=== PATIENT | female | born 1985 | race Hispanic/Latino ===

== ENCOUNTER 2018-12-01 17:07 | Emergency (ER) | payer BC, MEDICAID ==
--- NOTE | 2018-12-01 17:22 | Emergency Department Report ---
Blank Doc - Documentation Documentation: 33 y/o female sent from [facility] for etopic .
[2018-12-01 18:34] LABS: Basophils # (Auto) 0.1 K/mm3 (0.0-0.1); Basophils % (Auto) 1.3 % (0.0-1.8); Eosinophils # (Auto) 0.3 K/mm3 (0.0-0.4); Eosinophils % (Auto) 4.1 % (0.0-4.3); Hematocrit 33.6 % (30.3-42.9); Hemoglobin 10.9 gm/dl (10.1-14.3); Lymphocytes # (Auto) 2.2 K/mm3 (1.2-5.4); Lymphocytes % (Auto) 27.6 % (13.4-35.0); Mean Corpuscular HGB Conc 33 % (30-34); Mean Corpuscular Volume 78 fl (79-97); Monocytes # (Auto) 0.6 K/mm3 (0.0-0.8); Platelet Count 344 K/mm3 (140-440); Red Blood Count 4.31 M/mm3 (3.65-5.03); Red Cell Distribution Width 19.9 % (13.2-15.2)
[2018-12-01 18:39] LABS: INR 0.9 (0.87-1.13)
[2018-12-01 18:53] LABS: Alanine Aminotransferase 20 units/L (7-56); Albumin 4.1 g/dL (3.9-5); BUN/Creatinine Ratio 15; Blood Urea Nitrogen 9 mg/dL (7-17); Calcium 8.9 mg/dL (8.4-10.2); Hemolysis Index 0
[2018-12-01] MEDS ORDERED: TYLENOL PO ONE (19:42)
[2018-12-01 19:51] VITALS: BP 113/73
[2018-12-01] MEDS ORDERED: K-DUR PO ONE (20:01)
--- NOTE | 2018-12-01 20:04 | Emergency Department Report ---
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 Patient states that she went to her MAIL PROCESSING CLERK's office area today and various tests were performed and the ultrasound showed that she may be having an ectopic in the right fallopian tube. Patient states that she was then advised to come to the ED for a Rhogam injection. Patient states that the pain is intermittent and when it is worse she gets nausea and vomiting. Patient however denies fever, chills, diarrhea, vaginal bleeding, low back pain, dizziness, headache or shortness of breath and chest pain. Patient states that this is second ectopic , stating that the last ectopic affected left fallopian Q which had to be removed. MD Complaint: pelvic pain, other (, suspected ectopic ) -: Sudden, days(s) (2) Location: suprapubic, RLQ Radiation: non-radiating Severity: severe Severity scale (0 -10): 7 Quality: cramping, sharp Consistency: intermittent Improves with: none Worsens with: none Are you Now?: Yes (Approximately 5 weeks gestation) Associated Symptoms: denies other symptoms, vaginal discharge, vaginal bleeding, fever/chills, headaches, shortness of breath, syncope - Related Data Sexually active: Yes : 4 Para: 1 A: 2 Previous Rx's Medication Instructions Recorded Last Taken Type Glycerin/Propylene Glycol 30 ml OP Q4H #1 each 07/21/18 Unknown Rx [Artificial Tears Drops] Valacyclovir HCl [Valtrex] 500 mg PO DAILY #10 tablet 07/21/18 Unknown Rx predniSONE [Deltasone] 20 mg PO QDAY #9 tab 07/21/18 Unknown Rx Allergies Allergy/AdvReac Type Severity Reaction Status Date / Time No Known Allergies Allergy Verified 12/01/18 17:09 ED Review of Systems ROS: Stated complaint: EPTOPIC Other details as noted in HPI Comment: All other systems reviewed and negative Constitutional: no symptoms reported, see HPI. denies: chills, fever Eyes: as per HPI. denies: eye pain, eye discharge ENT: as per HPI. denies: ear pain, throat pain, hearing loss Respiratory: no symptoms reported, see HPI. denies: cough, shortness of breath, SOB with exertion Cardiovascular: as per HPI. denies: chest pain, palpitations, dyspnea on exertion, syncope Endocrine: no symptoms reported, see HPI Gastrointestinal: as per HPI, abdominal pain, nausea, vomiting. denies: diarrhea, hematemesis, hematochezia Genitourinary: as per HPI, other (pelvic pain.). denies: urgency, dysuria, frequency, hematuria, abnormal menses, dyspareunia Musculoskeletal: as per HPI. denies: back pain Skin: as per HPI Neurological: as per HPI. denies: headache, weakness, numbness, confusion Psychiatric: as per HPI Hematological/Lymphatic: as per HPI ED Past Medical Hx - Past Medical History Hx Hypertension: No Hx Congestive Heart Failure: No Hx Diabetes: No Hx Deep Vein Thrombosis: No Hx Liver Disease: No Hx Renal Disease: No Hx Sickle Cell Disease: No Hx Seizures: No Hx Asthma: No Hx COPD: No - Surgical History Additional Surgical History: ECTOPIC --Left Fallopian tube s/p resection - Social History Smoking Status: Current Every Day Smoker Substance Use Type: Marijuana - Medications Home Medications: Home Medications Medication Instructions Recorded Confirmed Last Taken Type Glycerin/Propylene Glycol 30 ml OP Q4H #1 each 07/21/18 Unknown Rx [Artificial Tears Drops] Valacyclovir HCl [Valtrex] 500 mg PO DAILY #10 tablet 07/21/18 Unknown Rx predniSONE [Deltasone] 20 mg PO QDAY #9 tab 07/21/18 Unknown Rx ED Physical Exam - General Limitations: No Limitations General appearance: alert, in no apparent distress - Head Head exam: Present: normocephalic, normal inspection - Eye Eye exam: Present: normal appearance, PERRL, EOMI Pupils: Present: normal accommodation - ENT ENT exam: Present: normal exam, normal orophraynx, mucous membranes moist, TM's normal bilaterally, normal external ear exam - Neck Neck exam: Present: normal inspection, full ROM. Absent: tenderness, lymphadenopathy - Respiratory Respiratory exam: Present: normal lung sounds bilaterally. Absent: respiratory distress, wheezes, chest wall tenderness - Cardiovascular Cardiovascular Exam: Present: normal rhythm, tachycardia, normal heart sounds - GI/Abdominal GI/Abdominal exam: Present: soft, tenderness (moderate right lower quadrant and suprapubic tenderness), normal bowel sounds. Absent: guarding, rebound, hyperactive bowel sounds - Rectal Rectal exam: Present: deferred - Extremities Exam Extremities exam: Present: normal inspection, normal capillary refill - Back Exam Back exam: Present: normal inspection, full ROM. Absent: tenderness, CVA tenderness (R), CVA tenderness (L) - Neurological Exam Neurological exam: Present: alert, oriented X3, CN II-XII intact, normal gait, reflexes normal - Psychiatric Psychiatric exam: Present: normal affect - Skin Skin exam: Present: warm, dry, intact ED Course Vital Signs 12/01/18 12/01/18 17:17 19:39 Temperature 98.6 F 98.7 F Pulse Rate 103 H 86 Respiratory 18 17 Rate Blood Pressure 116/76 Blood Pressure 113/73 [Left] O2 Sat by Pulse 100 100 Oximetry ED Medical Decision Making - Lab Data Result diagrams: 12/01/18 17:54 12/01/18 17:54 - Medical Decision Making Patient had presented to the ED with complaint of right lower quadrant and right flank pain and apparently had area pain to her MAIL PROCESSING CLERK physician's office and was confirmed to be 5 weeks . Patient was referred today ED for RhoGAM injection because of her previous history miscarriages and ectopic pregnancies. Patient was also referred to this ED for confirmation of her suspected ectopic , having had a transvaginal ultrasound in her MAIL PROCESSING CLERK's physician's office. While in the ED, the patient was treated for pain, labs were drawn and transvaginal ultrasound ordered fresh she is the one that had been done earlier this performed outside hospital. The ED could not rely on what the patient reported since there was no documented evidence that she was having ectopic . The patient was advised on this plan of care and she agreed with it. Initial lab test results reviewed were unremarkable, and hCG Quant studies was [id number]. The patient was waiting for the ultrasound, she stormed out of the ED room cursing at everybody and saying that she could not wait for the test and because it was taking too long. Patient therefore stormed out of the ED AGAINST MEDICAL ADVICE. - Differential Diagnosis Ectopic ; Acute appendicitis, abdominal pain Critical care attestation.: If time is entered above; I have spent that time in minutes in the direct care of this critically ill patient, excluding procedure time. ED Disposition Clinical Impression: Abdominal pain complicating Disposition: LEFT AGAINST MED ADVICE Is pt being admited?: No Does the pt Need Aspirin: No Condition: Stable Instructions: Abdominal Pain (ED) Referrals: BEBO FOLEY MD [Primary Care Provider] - 3-5 Days Time of Disposition: 20:28 (stormed out of ED stating the tests were taking too long) Print Language: ARABIC
== END 2018-12-01 20:28 | disposition left against medical advice (07) ==
LOC: ED 17:07
DX: O26.891 Other specified pregnancy related conditions, first trimester (principal); R10.9 Unspecified abdominal pain; Z3A.01 Less than 8 weeks gestation of pregnancy
CPT/HCPCS: 36415; 80053; 84702; 85025; 85610; 86850; 86900; 86901; 96372